=== PATIENT | male | born 1980 | race Caucasian/White ===

== ENCOUNTER → 2021-03-08 | Outpatient (CLI) | payer OTHER | LOC: COL.RAD 02-28 10:30 | DX: I86.1 Scrotal varices (principal) ==

== ENCOUNTER 2022-01-15 08:00 | Outpatient (RCR) | payer OTHER | END 2022-01-22 | disposition home or self-care (01) | LOC: WSPT | DX: M25.872 Other specified joint disorders, left ankle and foot (principal); M25.372 Other instability, left ankle ==